=== PATIENT | female | born 1945 | race Caucasian/White ===

== ENCOUNTER → 2018-04-14 | Outpatient (CLI) | payer MEDICARE, OTHER ==
--- NOTE | 2018-04-14 13:52 | Diagnostic Imaging Report ---
EXAM: CT Chest WITHOUT contrast 04/14/2018 11:52 AM INDICATION: \[id number] \S\1200 \S\SEVERE SHORTNESS OF BREATH COMPARISON: None TECHNIQUE: Chest was scanned utilizing a multidetector helical scanner from the lung apex through the level of the adrenal glands without administration of IV contrast. Absence of intravenous contrast decreases sensitivity for detection of lymphadenopathy and vascular pathology. Coronal and sagittal reformations were obtained. Routine protocol was performed. IV CONTRAST: None COMPLICATIONS: None RADIATION DOSE: Total DLP: 557.8 mGy*cm Estimated effective dose: (DLP x 0.015 x size factor) mSv CTDIvol has been reviewed. It is below the limits set by the Radiation Protocol Committee (RPC). FINDINGS: LINES/ TUBES: None. LUNGS AND AIRWAYS: Mild postsurgical attenuation of the lungs suggestive of air trapping. Mild scarring in the left lower lobe and lingula. Few right pulmonary nodules as follow: * 4 mm groundglass pulmonary nodule in the right upper lobe on series 3, image 34. * 5 mm subpleural solid nodule in the right lower lobe on series 3, image 64. * Nodular thickening of the right major fissure measuring up to 4 mm on series 3, image 64. No nodules in the left lung. No consolidations. No bronchiectasis. Mild central peribronchial wall thickening. Mild rightward deviation of the upper trachea due to a tortuous thoracic aorta. PLEURA: The pleural spaces are clear. HEART AND MEDIASTINUM: The thyroid gland is normal. No mediastinal, hilar or axillary lymphadenopathy. The heart is normal in size. There is no pericardial effusion. Borderline size of the ascending thoracic aorta (3.8 cm). The main pulmonary artery is mildly enlarged, measuring 3.2 cm, and may reflect mild pulmonary hypertension. Lipomatous hypertrophy of the interarterial septum, finding that can be associated with supraventricular arrhythmias. UPPER ABDOMEN: Diffuse hepatic steatosis. BONES: Moderate degenerative changes of the thoracic spine. SOFT TISSUES: Unremarkable. IMPRESSION: 1. Bilateral air trapping with associated mild central peribronchial wall thickening suggestive of reactive airway disease or viral infection. 2. No lobar consolidations. 3. Few right 3 to 5 mm pulmonary nodules. Follow-up recommendation according to 2017 Fleischner Society Guidelines: No follow-up needed. If high risk, optional CT chest without contrast can be obtained 12 months. Reference Guidelines: http://pubs.rsna.org/doi/pdf/10.1148/radiol.4792104762 Signed by: Dr. Carol Ortega M.D. on 04/14/2018 1:48 PM
== END ==
LOC: CT 11:34
PROVIDERS: ATTEND Internal Medicine Cardiovascular Disease
DX: R06.02 Shortness of breath (principal)
CPT/HCPCS: 71250

== ENCOUNTER 2019-09-06 16:19 | Inpatient (IN) | payer MEDICARE, OTHER ==
[~2019-09-06] VITALS: Ht 172.7 cm; Wt 109.8 kg
--- OUTSIDE RECORDS SUMMARY | 2019-09-06 16:21 | XMS REPORT ---
Author Author [facility] Address Unknown Phone Unavailable Care Team Providers Care Yarding Engineer Name Role Phone ALONDRA ALLEN Unavailable Unavailable Problems This patient has no known problems. Allergies, Adverse Reactions, Alerts This patient has no known allergies or adverse reactions. Medications This patient has no known medications. Results Test Description Test Time Test Comments Text Results Atomic Results Result Comments CT CHEST WO 2018-04-14 13:36:00 [place] [address] Patient Name: KASEY HANSON MR #: [id number] : 1945 Age/Sex: 73/F Req #: [id number] Adm Physician: Ordered by: ALONDRA ALLEN MD Report #: [id number] Location: CT Room/Bed: Procedure: [id number] CT/CT CHEST WO Exam Date: 04/14/18 Exam Time: 1200 REPORT STATUS: Signed EXAM: CT Chest WITHOUT contrast 04/14/2018 11:52 AM INDICATION: COMPARISON: None TECHNIQUE: Chest was scanned utilizing a multidetector helical scanner from the lung apex through the level of the adrenal glands without administration of IV contrast. Absence of intravenous contrast decreases sensitivity for detection of lymphadenopathy and vascular pathology. Coronal and sagittal reformations were obtained. Routine protocol was performed. IV CONTRAST: None COMPLICATIONS: None RADIATION DOSE: Total DLP: 557.8 mGy*cm Estimated effective dose: (DLP x 0.015 x size factor) mSv CTDIvol has been reviewed. It is below the limits set by the Radiation Protocol Committee (RPC). FINDINGS: LINES/ TUBES: None. LUNGS AND AIRWAYS: Mild postsurgical attenuation of the lungs suggestive of air trapping. Mild scarring in the left lower lobe and lingula. Few right pulmonary nodules as follow: * 4 mm groundglass pulmonary nodule in the right upper lobe on series 3, image 34. * 5 mm subpleural solid nodule in the right lower lobe on series 3, image 64. * Nodular thickening of the right major fissure measuring up to 4 mm on series 3, image 64. No nodules in the left lung. No consolidations. No bronchiectasis. Mild central peribronchial wall thickening. Mild rightward deviation of the upper trachea due to a tortuous thoracic aorta. PLEURA: The pleural spaces are clear. HEART AND MEDIASTINUM: The thyroid gland is normal. No mediastinal, hilar or axillary lymphadenopathy. The heart is normal in size. There is no pericardial effusion. Borderline size of the ascending thoracic aorta (3.8 cm). The main pulmonary artery is mildly enlarged, measuring 3.2 cm, and may reflect mild pulmonary hypertension. Lipom atous hypertrophy of the interarterial septum, finding that can be associated with supraventricular arrhythmias. UPPER ABDOMEN: Diffuse hepatic steatosis. BONES: Moderate degenerative changes of the thoracic spine. SOFT TISSUES: Unremarkable. IMPRESSION: 1. Bilateral air trapping with associated mild central peribronchial wall thickening suggestive of reactive airway disease or viral infection. 2. No lobar consolidations. 3. Few right 3 to 5 mm pulmonary nodules. Follow-up recommendation according to 2017 Fleischner Society Guidelines: No follow-up needed. If high risk, optional CT chest without contrast can be obtained 12 months. Reference Guidelines: http://pubs.rsna.org/doi/pdf/10.1148/radiol.1838430486 Signed by: Dr. Brandie Schwartz M.D. on 04/14/2018 1:48 PM Dictated By: BRANDIE SCHWARTZ MD 1342 Transcribed By: DOROTHY on 04/14/18 1348 COPY TO: ALONDRA ALLEN MD
[2019-09-06] MEDS ORDERED: ALBUTEROL SULF 0.083% NEB SOLN 3 ML NEB NEB STA (16:37)
[2019-09-06] MEDS ORDERED: METHYLPREDNISOLONE SOD SUCC 125 MG/2ML VIAL IV STA (16:37)
[2019-09-06] MEDS ORDERED: IPRATROPIUM BROMIDE 0.02% 2.5 ML NEB NEB ONE (16:45)
[2019-09-06 16:58] LABS: BASOPHILS % 0.1 % (0.0-1.0); EOSINOPHILS % 0.5 % (0.0-6.0); HEMOGLOBIN 13.2 g/dL (12.0-16.0); LYMPHOCYTES % 22.1 % (18.0-39.1); MEAN CORPUSCULAR HEMOGLOBIN 30.6 pg (28-32); MEAN CORPUSCULAR HGB CONC 32.2 g/dL (31-35); MEAN CORPUSCULAR VOLUME 95.1 fL (81-99); MONOCYTES # (AUTO) 0.8 (0.2-0.8); NEUTROPHILS % 67.7 % (38.7-80.0); PLATELET COUNT 238 x10e3/uL (140-360); RED BLOOD COUNT 4.31 x10e6/uL (3.6-5.1); RED CELL DISTRIBUTION WIDTH 13.8 % (11.7-14.4)
[2019-09-06 17:09] LABS: INR 0.9; PROTHROMBIN TIME 12.3 seconds (11.9-14.5)
[2019-09-06 17:15] LABS: STREPTOCOCCUS GRP A ANTIGEN NEGATIVE (NEGATIVE)
[2019-09-06] MEDS ORDERED: LEVALBUTEROL HCL SOLN NEBU 1.25 MG/3 ML NEB INH ONE (17:15)
[2019-09-06 17:18] LABS: INFLUENZAE A&B ANTIGEN (RAPID) NEGATIVE (NEGATIVE)
[2019-09-06] MEDS ORDERED: LEVALBUTEROL HCL SOLN NEBU 1.25 MG/3 ML NEB ONE (17:19)
[2019-09-06 17:20] LABS: ALANINE AMINOTRANSFERASE 56 IU/L (0-55); ALBUMIN 3.7 g/dL (3.5-5.0); ALBUMIN/GLOBULIN RATIO 1.1 (0.8-2.0); ALKALINE PHOSPHATASE 78 IU/L (40-150); ANION GAP 17.3 mmol/L (8-16); BLOOD UREA NITROGEN 15 mg/dL (7-26); BUN/CREATININE RATIO 16 (6-25); CALCIUM 9.3 mg/dL (8.4-10.2); CARBON DIOXIDE 30 mmol/L (22-29); CHLORIDE 98 mmol/L (98-107); CREATINE KINASE 68 IU/L (29-168); CREATININE, SERUM 0.91 mg/dL (0.57-1.11); EST GLOMERULAR FILTRATION RATE > 60 ML/MIN (60-); GLUCOSE 112 mg/dL (74-118); POTASSIUM 3.3 mmol/L (3.5-5.1); SODIUM 142 mmol/L (136-145)
--- NOTE | 2019-09-06 17:33 | Diagnostic Imaging Report ---
Chest, 1 view, 09/06/2019. History: Cough and shortness of breath. Comparison: None available. Findings: The cardiomediastinal silhouette and pulmonary vasculature are within normal limits for a portable exam. There is no focal consolidation or pleural effusion. There are no acute osseous or soft tissue abnormalities. Impression: No acute cardiopulmonary abnormality. Signed by: Devon Mcdowell on 09/06/2019 5:31 PM
[2019-09-06] MEDS ORDERED: ONDANSETRON HCL INJ 2MG/ML 2ML 2 MG/ML VIAL IV PRN (17:45)
[2019-09-06] MEDS: CEFTRIAXONE SOD 1 GM/NS 50 ML 50 ML IV SCH (18:07)
--- NOTE | 2019-09-06 18:16 | NUR ---
RECEIVED REPORT FROM HAND TRIMMERASH; AWAITING PT'S ARRIVAL FROM CT TO COME TO ROOM 106.
--- NOTE | 2019-09-06 18:21 | NUR ---
PT ARRIVED TO ROOM [address]AN[address] AT BEDSIDE. PT AMBULATING, AWAKE, ALERT, ORIENTED X3, NO SIGNS OF DISTRESS.
[2019-09-06] MEDS ORDERED: SODIUM CHLORIDE 0.9% 50ML 50 ML ONE (18:28)
[2019-09-06] MEDS ORDERED: IOPAMIDOL 370 MG/ML 200 ML INFUS..BTL INJ ONE (18:28)
[2019-09-06] MEDS ORDERED: POTASSIUM CHLORIDE 20 MEQ TAB CR PO NR (18:30)
[2019-09-06 18:32] LABS: ABG HCO3 29 mmol/L (23-28); ABG PCO2 32 mmHg (41-51); ABG PH 7.57 (7.31-7.41); ABG PO2 65 mmHg (80-105)
--- NOTE | 2019-09-06 18:43 | Diagnostic Imaging Report ---
EXAM: CT Chest WITH contrast (PE Protocol) INDICATION: Cough. Shortness of breath. Swelling. COMPARISON: September 06, 2019. April 14, 2018 TECHNIQUE: Chest was scanned utilizing a multidetector helical scanner from the lung apex through the level of the diaphragm after administration of IV contrast. Thin section reconstructions were obtained with special concentration on the pulmonary arteries. Coronal and sagittal reformations were obtained. Pulmonary embolism protocol was performed. IV CONTRAST: 100 mL of Isovue-370 COMPLICATIONS: None RADIATION DOSE: Total DLP: 632 mGy*cm Estimated effective dose: (DLP x 0.014 x size factor) mSv CTDIvol has been reviewed. It is below the limits set by the Radiation Protocol Committee (RPC). Dose modulation, iterative reconstruction, and/or weight based adjustment of the mA/kV was utilized to reduce the radiation dose to as low as reasonably achievable. FINDINGS: LUNGS AND AIRWAYS: Scattered diffuse groundglass density in the lungs may be due to mild pulmonary edema or possibly air trapping. Mild scarring in the left lower lobe and lingula. Few right pulmonary nodules as follow: * 4 mm groundglass pulmonary nodule in the right upper lobe unchanged * 5 mm subpleural solid nodule in the right lower lobe unchanged * Nodular thickening of the right major fissure unchanged No nodules in the left lung. No consolidations. No bronchiectasis. Mild central peribronchial wall thickening. Mild rightward deviation of the upper trachea due to a tortuous thoracic aorta. PLEURA: The pleural spaces are clear. HEART AND MEDIASTINUM: No pulmonary embolism. The thyroid gland is normal. No mediastinal, hilar or axillary lymphadenopathy. The heart is normal in size. There is no pericardial effusion. Borderline size of the ascending thoracic aorta (3.8 cm). The main pulmonary artery is mildly enlarged, measuring 3.2 cm, and may reflect mild pulmonary hypertension. Lipomatous hypertrophy of the interarterial septum, finding that can be associated with supraventricular arrhythmias. UPPER ABDOMEN: Diffuse hepatic steatosis. BONES: Moderate degenerative changes of the thoracic spine. SOFT TISSUES: Unremarkable. IMPRESSION: 1. No pulmonary embolism Scattered diffuse groundglass density in the lungs may be due to mild pulmonary edema or possibly air trapping 2. No lobar consolidations. 3. Few right 3 to 5 mm pulmonary nodules. Signed by: Dr. Nabor Moran M.D. on 09/06/2019 6:41 PM
[2019-09-06] MEDS: IPRATROPIUM BROMIDE 0.02% 2.5 ML NEB NEB SCH ×2 (19:00→23:15)
--- NOTE | 2019-09-06 19:06 | NUR ---
BEDSIDE SHIFT REPORT GIVEN TO ONCOMING RN TO COMPLETE ADMISSION. PT AWAKE, ALERT, ORIENTED, FAMILY AT BEDSIDE. NO COMPLAINTS AT THIS TIME.
--- NOTE | 2019-09-06 19:30 | NUR ---
RECEIVED THE PATIENT IN REPORT.ADMISSION ASSESSMENT DONE.AAOX4.AMBULATORY.SHORTNESS OF BREATH AND WHEEZING NOTED.NO RESP.DISTRESS.NO PAIN VOICED.TELE IN PLACE.IV TO LEFT AC IS PATENT.SR RHYTHM NOTED.ORIENTED TO THE UNIT.BED LOCKED AND IN LOWEST POSITION.PHONE AND CALL LIGHT WITHIN REACH.INSTRUCTED TO CALL FOR ASSISTANCE NEEDED.
[2019-09-06 19:45] LABS: CLARITY,URINE CLEAR (CLEAR); COLOR,URINE YELLOW (YELLOW)
[2019-09-06 19:46] LABS: BILIRUBIN,URINE NEGATIVE (NEGATIVE); KETONES,URINE NEGATIVE (NEGATIVE); LEUKOCYTE ESTERASE ,URINE TRACE (NEGATIVE); NITRITE,URINE NEGATIVE (NEGATIVE); PROTEIN,URINE DIPSTICK NEGATIVE (NEGATIVE); URINE UROBILINOGEN 0.2 mg/dL (0.2 - 1)
[2019-09-06] MEDS: AZITHROMYCIN 500MG/NS 250 ML 250 ML IV SCH (19:57)
[2019-09-06 20:00] VITALS: BP 162/81
[2019-09-06] MEDS: TORSEMIDE 10 MG TAB PO SCH (20:10)
[2019-09-06 20:19] VITALS: BP 134/74
[2019-09-06 20:48] VITALS: BP 162/81
[2019-09-06] MEDS: METHYLPREDNISOLONE SOD SUCC 125 MG/2ML VIAL IV SCH (22:31)
[2019-09-06] MEDS: LEVALBUTEROL HCL SOLN NEBU 0.63 MG/3 ML NEB INH PRN (23:15)
[2019-09-07] VITALS (8 sets, daily range): BP systolic 120–163; BP diastolic 69–81
--- NOTE | 2019-09-07 00:28 | Consultation ---
DATE OF CONSULTATION: 09/06/2019 Cardiac Consultation REASON FOR CONSULTATION: Respiratory distress, swelling of the lower extremities. HISTORY OF PRESENT ILLNESS: This is a delightful 74-year-old lady, who was known to me for many years. She is known with hypertension, past history of left ventricular dysfunction, reactive airway disease. Regarding her cardiac issue, she is diagnosed in 2015 where cardiac catheterization showed evidence of decreased left ventricular systolic function. On that time, we treated her with medication and she seems to be improving. However, after improvement and everything fine, the patient in her usual status of health till 6 months ago when she went to [place]. Since that time, she is very ill. The patient does not have reactive airway disease, on rescue inhaler and Advair, etc. She takes her medication. She is followed by her Pulmonary in [place], [place]. However, for the last 6 months, she got a lot of antibiotics, a lot of treatment and adjustment, and steroids, etc. She had initially improvement, however, for the last 2 to 3 weeks, her shortness of breath becoming by far much worse. Her medications were adjusted. She came urgently. She is also known to have hypertension and hypothyroidism and they are nicely controlled with medication. She was seen yesterday by ENT and they were thinking about sinus infection. She had one injection of Levaquin intramuscularly and she was started on Levaquin treatment. The patient came urgently to my office today because of swelling of the lower extremities, unable to breathe and she was fighting for her breath. She cannot walk for few steps without having severe shortness of breath. She is having cough. She is having orthopnea. She cannot be flat. She was very-very sick. At this time, I asked her to come urgently to emergency room and I discussed her case with Dr. Lentz. In the emergency room, she had a chest x-ray which showed no evidence of volume overload. Her chest x-ray showed no infiltrate. Her lab showed BNP only at 92. Her electrolytes showed sodium of 142, potassium 3.3, BUN of 30, creatinine of 17.3. Her troponin is normal. Her white blood cell count showed hemoglobin of 8.8 with hemoglobin and hematocrit at 13 and 41% with platelet count of 238,000. Her EKG showed no acute changes. In summary, the patient's symptoms are severe shortness of breath with difficulty breathing, on exertion and at rest even. Swelling of the lower extremity, cough, and thinks she is feeling very ill. CURRENT MEDICATIONS: 1. Losartan 50 mg daily. 2. Torsemide 20 mg t.i.d. 3. Potassium chloride 10 mEq a day. 4. Omeprazole 20 mg a day. 5. Ventolin and Advair Diskus. 6. Coreg 12.5 mg twice a day. 7. Levothyroxine 50 mcg a day. 8. Vitamins and Levaquin just started. ALLERGIES: SHELLFISH AND PRAVASTATIN. PAST MEDICAL HISTORY: 1. Left ventricular dysfunction with improvement in EF. 2. Reactive airway disease and asthma. 3. Severe GERD. 4. Hypercholesterolemia. 5. Hypothyroidism. 6. Degenerative joint disease. 7. Breast surgery in 1981. 8. Hysterectomy. 9. Thyroid nodules removal in 2002. 10. Severely ill since her trip to [place] 6 months ago. FAMILY HISTORY: Mother in her 90s with CHF. Father at age 65 with heart disease. Three siblings, one brother had blood clot, but he does have colon cancer. Son with hypertension. A daughter with tongue cancer and another daughter with bilateral mastectomy. REVIEW OF SYSTEMS: GENERAL: Unable to do any activity. Very weak. HEENT: Severe congestion and stuffiness. PULMONARY: Severe shortness of breath. CARDIAC: As per above. GI: Good appetite. HEMATOLOGY: No easy bruising or bleeding. : Increased frequency of urination. MUSCULOSKELETAL: Knee pain, lower extremity, leg swelling. SKIN: No rashes. NEUROLOGIC: No seizure activity. PSYCHIATRIC: No depression symptoms. PHYSICAL EXAMINATION: VITAL SIGNS: Height of 5 feet 8 inches, weight of 242 pounds, blood pressure 140/90, heart rate of 80, respiratory rate of 18, and temperature of 95 Fahrenheit. GENERAL: The patient appears to be very ill. NECK: No elevation of jugular venous pulsation. No bruit. No thyromegaly. CHEST: Crackles in both inspiratory and expiratory phases, although the expiratory phase is more prolonged and the chest sounds to be very junky on examination. HEART: PMI, 5th left intercostal space. No left ventricular heave. Normal first and second heart sound. ABDOMEN: Soft with no organomegaly. No abdominal bruits. EXTREMITIES: Bilateral edema. NEUROLOGIC: Awake, alert, and oriented. No motor deficits. LABORATORY DATA: White blood cell count of 8.8, hemoglobin 13.2, hematocrit 41%, and platelet count of 238,000. Electrolytes showed only mild elevation of CO2 at 30, low potassium at 3.3. BUN of 15, creatinine of 0.9. BNP of only 92. D-dimer is at borderline 0.45. IMPRESSION AND PLAN: 1. Most likely reactive airway disease and asthma-like attack. 2. Probability of congestive heart failure, [id number] is ruled out on the basis of BNP and chest x-ray finding. 3. Hypertension. 4. Hypercholesteremia. 5. Hypothyroidism. 6. Electrolyte imbalance, most likely secondary to diuresis as evidenced by CO2 of 30 and potassium 3.2. This patient nearly presented dilemma since [address] scan should be done to rule out pulmonary embolism and may be will give more information about her lung. Echocardiogram can be also done and venous Doppler to rule out deep venous thrombosis. She will be treated with gentle diuresis as well as with breathing treatments. She has already kept on dose of antibiotics. Input from Pulmonary will be quite helpful. We will follow this complex case, which she is now ill for 6 months and she is with worsening status. Depending on her course, further steps to be done. MD ZACK Garg/MARK /[id number]
--- NOTE | 2019-09-07 01:06 | NUR ---
BLOOD CHRISTOPHER AND SENT TO THE LAB.
[2019-09-07] MEDS ORDERED: LEVOTHYROXINE75 MCG PO (01:25)
[2019-09-07] MEDS ORDERED: B COMPLEX1 EACH PO (01:25)
[2019-09-07] MEDS ORDERED: CARVEDILOL12.5 MG PO (01:25)
[2019-09-07] MEDS ORDERED: TORSEMIDE10 MG PO (01:25)
[2019-09-07] MEDS ORDERED: POTASSIUM CHLO10 ME1 PO (01:25)
[2019-09-07] MEDS ORDERED: LOSARTAN POTASS50 MG PO (01:25)
[2019-09-07 01:32] LABS: CREATINE KINASE 65 IU/L (29-168)
[2019-09-07] MEDS ORDERED: ADVAIR 250-501 EACH IH (01:32)
--- NOTE | 2019-09-07 01:42 | Consultation ---
DATE OF CONSULTATION: 09/06/2019 Pulmonary Consultation REASON FOR CONSULT: Wheezing, shortness of breath. HISTORY OF PRESENT ILLNESS: Ms. Mathews is a 74-year-old female. She presented to the emergency room with complaints of shortness of breath. She was seen by me in the office and has asthma. She was in [place] and developed this worsening shortness of breath and wheezing off and on. She never recovered that. This was almost 6 months ago. She is on torsemide, torsemide and she is on Advair at home. She follows up with a invoice coder in [place]. CT of the chest was done in the emergency room, I reviewed the images. It is showing no pulmonary embolism. She had some ground-glass densities secondary to pulmonary edema, but no consolidation. REVIEW OF SYSTEMS: GENERAL: Denies any weight loss, chills. HEAD: Denies any head trauma. ENT: Denies any earache. CVS: Denies any chest pain. RESPIRATORY: Shortness of breath and wheezing. The rest of the review of systems are negative except as in HPI. PAST MEDICAL HISTORY: Asthma, heart failure, coronary artery disease. FAMILY AND SOCIAL HISTORY: She does not smoke. Does not drink. PHYSICAL EXAMINATION: VITAL SIGNS: Temperature 97.8, pulse of 80, blood pressure 150/82. CHEST: Wheezing bilaterally. HEART: S1, S2 audible. ABDOMEN: Soft. EXTREMITIES: Pedal edema. NEUROLOGIC: Awake and alert. LABORATORY DATA: Reviewed. ASSESSMENT/PLAN: Ms. Mathews is a 74-year-old female with severe asthma exacerbation. Agree with IV Solu-Medrol, nebulizer treatment and oxygen as needed. Agree with Rocephin and azithromycin for now. Possibly, we will need IV diuretics, but defer the management of pulmonary edema to Cardiology. Thank you for this consult. MD YAEL Simpson/MARK /[id number]
[2019-09-07] MEDS: IPRATROPIUM BROMIDE 0.02% 2.5 ML NEB NEB SCH ×6 (03:00→23:21)
[2019-09-07] MEDS: METHYLPREDNISOLONE SOD SUCC 125 MG/2ML VIAL IV SCH ×2 (05:44→15:01)
[2019-09-07] MEDS: LEVOTHYROXINE SODIUM 50 MCG TAB PO SCH (05:57)
[2019-09-07 06:03] LABS: HEMATOCRIT 39.6 % (34.2-44.1); HEMOGLOBIN 13.1 g/dL (12.0-16.0); LYMPHOCYTES # (AUTO) 0.7 (1.0-3.2); MEAN CORPUSCULAR HEMOGLOBIN 30.7 pg (28-32); MEAN CORPUSCULAR HGB CONC 33.1 g/dL (31-35); MEAN CORPUSCULAR VOLUME 92.7 fL (81-99); MONOCYTES # (AUTO) 0.1 (0.2-0.8); MONOCYTES % 1.9 % (4.4-11.3); NEUTROPHILS # (AUTO) 6.4 (2.1-6.9); NEUTROPHILS % 86.9 % (38.7-80.0); PLATELET COUNT 242 x10e3/uL (140-360); RED BLOOD COUNT 4.27 x10e6/uL (3.6-5.1); RED CELL DISTRIBUTION WIDTH 13.6 % (11.7-14.4)
[2019-09-07 06:38] LABS: ALBUMIN 3.4 g/dL (3.5-5.0); ALBUMIN/GLOBULIN RATIO 0.9 (0.8-2.0); ANION GAP 17.1 mmol/L (8-16); CALCIUM 9.4 mg/dL (8.4-10.2); CREATININE, SERUM 0.95 mg/dL (0.57-1.11); POTASSIUM 4.1 mmol/L (3.5-5.1)
--- NOTE | 2019-09-07 07:00 | NUR ---
Bed side shift report given to oncoming Rn.stable condition.
--- NOTE | 2019-09-07 07:01 | NUR ---
BEDSIDE SHIFT REPORT RECEIVED FROM SAFETY GLASS INSTALLER RN, PT SITTING UP IN BED, AWAKE, ALERT, ORIENTED, NO COMPLAINTS AT THIS TIME.
[2019-09-07 07:04] LABS: CREATINE KINASE 77 IU/L (29-168)
[2019-09-07 07:25] LABS: CHOL/HDL RATIO 3.8 (3.0-3.6)
[2019-09-07 07:44] LABS: THYROID STIMULATING HORMONE 0.487 uIU/mL (0.350-4.940)
[2019-09-07] MEDS: POTASSIUM CHLORIDE 20 MEQ TAB CR PO SCH (10:43)
[2019-09-07] MEDS: TORSEMIDE 10 MG TAB PO SCH ×2 (10:54→17:53)
[2019-09-07] MEDS: LOSARTAN POTASSIUM 100 MG TAB PO SCH (10:54)
[2019-09-07] MEDS ORDERED: ONDANSETRON HCL 4 MG ORAL DISINTEGRATING TAB PO PRN (11:30)
[2019-09-07] MEDS ORDERED: ENOXAPARIN SOD INJ 40 MG/0.4 ML SYR SC SCH (17:00)
[2019-09-07] MEDS ORDERED: SODIUM CHLORIDE 0.9% 250ML 250 ML ONE (17:49)
[2019-09-07] MEDS: CEFTRIAXONE SOD 1 GM/NS 50 ML 50 ML IV SCH (17:52)
[2019-09-07] MEDS: AZITHROMYCIN 500MG/NS 250 ML 250 ML IV SCH (18:43)
--- NOTE | 2019-09-07 20:00 | NUR ---
ASSESSMENT DONE.NO RESP.DISTRESS.NO PAIN VOICED.AMBULATORY.HAS C/O CONSTIPATION.NOTIFIED TO DR.S CLARK.RECEIVED NEW ORDERS.HE ORDERED TO CONTINUE [id number] MG BID.BED LOCKED AND IN LOWEST POSITION.PHONE AND CALL LIGHT WITHIN REACH.INSTRUCTED TO CALL FOR ASSISTANCE NEEDED.
[2019-09-07] MEDS: LEVALBUTEROL HCL SOLN NEBU 0.63 MG/3 ML NEB INH PRN (20:15)
[2019-09-07] MEDS ORDERED: MAGNESIUM HYDROXIDE 30 ML UDC PO PRN (20:30)
[2019-09-07] MEDS: METHYLPREDNISOLONE SOD SUCC 40 MG/ML VIAL 1ML IV SCH (21:34)
[2019-09-07] MEDS: CARVEDILOL 12.5 MG TAB PO SCH (21:34)
[2019-09-08 00:32] VITALS: BP 130/84
[2019-09-08] MEDS: LEVALBUTEROL HCL SOLN NEBU 0.63 MG/3 ML NEB INH PRN ×2 (03:29→06:20)
[2019-09-08] MEDS: IPRATROPIUM BROMIDE 0.02% 2.5 ML NEB NEB SCH ×3 (03:29→10:40)
[2019-09-08 04:00] VITALS: BP 141/76
[2019-09-08] MEDS: LEVOTHYROXINE SODIUM 50 MCG TAB PO SCH (05:40)
[2019-09-08] MEDS: METHYLPREDNISOLONE SOD SUCC 40 MG/ML VIAL 1ML IV SCH (05:40)
--- NOTE | 2019-09-08 07:04 | NUR ---
BED SIDE SHIFT REPORT GIVEN TO ONCOMING RN.STABLE CONDITION.
[2019-09-08 08:13] VITALS: BP 141/76
[2019-09-08 08:15] VITALS: BP 154/84
[2019-09-08] MEDS: POTASSIUM CHLORIDE 20 MEQ TAB CR PO SCH (08:59)
[2019-09-08] MEDS: TORSEMIDE 10 MG TAB PO SCH (08:59)
[2019-09-08] MEDS: CARVEDILOL 12.5 MG TAB PO SCH (09:05)
[2019-09-08] MEDS: LOSARTAN POTASSIUM 100 MG TAB PO SCH (09:05)
[2019-09-08] MEDS ORDERED: AZITHROMYCIN 250 MG TAB PO SCH (18:00)
[2019-09-08] MEDS ORDERED: CARVEDILOL 12.5 MG TAB PO SCH (21:00)
--- NOTE | 2019-10-23 21:11 | Discharge Summary ---
CHIEF COMPLAINT: Increased shortness of breath, chest congestion. FINAL DIAGNOSES: Bronchial asthma, chronic congestive heart failure, hypothyroid. DISPOSITION: Home. HOSPITAL COURSE: A 74-year-old female with known history of hypertension, chronic congestive heart failure, hypothyroidism, bronchial asthma, brought to the ER with a several day history of pretty shortness of breath, chest congestion, frequent cough with occasional production of light yellow sputum. There were no other complaints. She was reviewed in the emergency room and she was noted to have expiratory crackles and expiratory wheezes. She demonstrated 1+ pitting edema to lower extremity, and with further review, monitoring, evaluating the data, admission was made regarding complaints of short of breath, cough, acute over chronic congestive heart failure, bronchial asthma, hypothyroidism. With admission, will be placing the patient on nebulizer treatments, start IV antibiotic protocols, and request Cardiology follow. As she was admitted regarding issues of respiratory distress, swelling of the lower extremities, her issues with CHF, she was being reviewed by Dr. Kaplan from a Cardiology standpoint. His impression was most likely reactive airways disease, asthma-like attack. Probability of congestive heart failure, acute on chronic ruled out on the basis of BNP and chest x-ray findings. Hypertension. Hypercholesterolemia. Hypothyroidism. Electrolyte imbalance, most likely secondary to diuresis as evidenced by CO2 of 30 and potassium of 3.2. Requested a CT scan to be done to rule out PE. She was being reviewed also by Dr. Nesbitt from a pulmonary standpoint regarding the wheezing and shortness of breath, and with his evaluation his impression was severe asthma with exacerbation. I agree with the IV Solu-Medrol, nebulizer treatments and O2. I agree with the antibiotic choice. Initially, the patient was on ER hold for bed availability. She was started on antibiotics and respiratory treatments along with her routine daily medications. Her laboratory studies were being reviewed. Noted early on, she was showing some minor potassium issues, but this is being watched closely and addressed as needed. She was able to be sent to the Med-Surg floor, where she was continuing to be cared for. She was resting comfortably. There were no new complaints. She was breathing better, demonstrating no distress. Her Solu-Medrol was being adjusted appropriately per Dr. Nesbitt. Improved overall. Discussions are being made for discharge planning and she is able to be released home in stable condition. IMAGING DATA: Initial chest x-ray shows no acute cardiopulmonary abnormalities. CT of chest for evaluation of PE shows no pulmonary embolism. Scattered diffuse ground-glass density in the lungs may be due to mild pulmonary edema or possibly air trapping. No lobar consolidations. New right 3-5 mm pulmonary nodules. She underwent bilateral lower extremity Doppler studies, which revealed no evidence of DVT. Culture; urine was negative, blood cultures were negative. Throat culture shows Pseudomonas aeruginosa. CBCs were unremarkable. Influenza studies were negative. Strep screen was negative. Urinalysis unremarkable. Chemistry shows initial potassium of 3.3. Kidney function stable. Glucose stable. First set of cardiac enzymes were stable. Further chemistries continues to show electrolytes now stable. Potassium is at 4.1, glucose increased to 201. Followup cardiac enzymes stable. She had lipid panel showing triglycerides of 101, cholesterol of 242, LDL cholesterol 159, HDL 63. She improved to discharge home in good condition. With discharge, we will continue with current diet. No equipments or supplies were necessary. No drain or [place] was needed. Activity level as directed by me as well as by Dr. Nesbitt and Dr. Kaplan. She will be following up with her PCP within 7 to 10 days. She will continue on carvedilol 12.5 mg p.o. b.i.d., Advair 250/50 two inhalations b.i.d., levothyroxine sodium 75 mcg p.o. daily, losartan potassium 50 mg one tablet daily, potassium chloride 10 mEq p.o. daily, torsemide 20 mg p.o. three times a day, vitamin B complex one tablet daily. If she has recurrence of symptoms before her scheduled followup, she will be contacting her PCP. Dictated by DONNELL Godoy Alex Campbell MD CC/MODL /[id number]
== END 2019-09-08 11:49 | disposition home or self-care (01) | DRG 202 ==
LOC: ER 16:19 → ERHOLD 17:36 → MED/SURG 18:31
DX: J45.901 Unspecified asthma with (acute) exacerbation (principal); I50.22 Chronic systolic (congestive) heart failure; I11.0 Hypertensive heart disease with heart failure; E78.5 Hyperlipidemia, unspecified; E03.9 Hypothyroidism, unspecified; E87.8 Other disorders of electrolyte and fluid balance, not elsewhere classified; I25.10 Atherosclerotic heart disease of native coronary artery without angina pectoris; R09.02 Hypoxemia
CPT/HCPCS: 36415; 36600; 71045; 71260; 80053; 80061; 81001; 82550; 82553; 82805; 83518; 83735; 83880; 84443; 84484; 85025; 85379; 85610; 85730; 87040; 87070; 87086; 87186; 87400; 93005; 93306; 93970; 94640; 99285; J0456; J0696; J1650; J2920; J2930; J7050; Q9967